=== PATIENT | male | born 1960 | race Caucasian/White ===

== ENCOUNTER 2025-08-10 15:06 | Emergency (ER) | payer OTHER ==
[~2025-08-10] VITALS: Ht 188 cm; Wt 101.6 kg
[2025-08-10 15:29] VITALS: BP 134/73; TEMP 97.9
[2025-08-10] MEDS ORDERED: MUPI22OI2 TP (15:49)
[2025-08-10 16:00] VITALS: O2SAT 99
== END 2025-08-10 16:00 | disposition home or self-care (01) ==
LOC: ER 15:06
DX: S61.211A Laceration without foreign body of left index finger without damage to nail, initial encounter (principal); S61.012A Laceration without foreign body of left thumb without damage to nail, initial encounter; W27.5XXA Contact with paper-cutter, initial encounter; Y93.89 Activity, other specified; Y92.89 Other specified places as the place of occurrence of the external cause; Y99.8 Other external cause status